=== PATIENT | female | born 1960 | race Caucasian/White ===

== ENCOUNTER 2017-08-04 11:21 | Emergency (ER) | payer BC ==
[~2017-08-04] VITALS: Ht 172.7 cm; Wt 95.2 kg
[~2017-08-04 11:21] MED LIST: Aspir-Trin325 MG; CHOL10002; GLUC500 PO; MULVITMIND; Red Yeast Rice600 MG
[2017-08-04] MEDS ORDERED: Zofran4 MG PO (14:31)
== END 2017-08-04 14:48 | disposition home or self-care (01) ==
LOC: ER 11:21
DX: R55 Syncope and collapse (principal); E78.00 Pure hypercholesterolemia, unspecified; Z79.899 Other long term (current) drug therapy; Z88.1 Allergy status to other antibiotic agents
CPT/HCPCS: 36415; 93005; 93010; 96374; 99283; J2310; J7120

== ENCOUNTER → 2018-03-11 | Outpatient (CLI) | payer BC ==
[~2018-03-11] MED LIST changes: +Zofran4 MG PO
== END ==
LOC: LAB 15:39 → LAB SHORT 15:39
PROVIDERS: Nurse Practitioner Family
DX: Z01.419 Encounter for gynecological examination (general) (routine) without abnormal findings (principal)
CPT/HCPCS: G0145

== ENCOUNTER 2018-11-10 14:48 | Emergency (ER) | payer BC ==
[~2018-11-10] VITALS: Ht 172.7 cm; Wt 94.3 kg
[2018-11-10] MEDS ORDERED: Crutch1 EACH MISC (17:09)
[2018-12-16] MEDS ORDERED: GLUCOSAMINE CH1 EAC4 PO (08:12)
[2018-12-16] MEDS ORDERED: VITAMIN D31000 UNI2 PO (08:12)
[2018-12-16] MEDS ORDERED: ASPI325 PO (08:13)
== END 2018-11-10 17:16 | disposition home or self-care (01) ==
LOC: ER 14:48
DX: S89.92XA Unspecified injury of left lower leg, initial encounter (principal); M19.90 Unspecified osteoarthritis, unspecified site; E78.5 Hyperlipidemia, unspecified; Z88.8 Allergy status to other drugs, medicaments and biological substances; X58.XXXA Exposure to other specified factors, initial encounter
CPT/HCPCS: 73562-LT; 99283-25

== ENCOUNTER 2018-12-24 08:25 | Day surgery (SDC) | payer BC ==
[~2018-12-24] VITALS: Ht 172.7 cm; Wt 90.0 kg
[~2018-12-24 08:25] MED LIST changes: +ASPI325 PO; +Crutch1 EACH MISC; +GLUCOSAMINE CH1 EAC4 PO; +VITAMIN D31000 UNI2 PO
--- NOTE | 2018-12-24 11:43 | NUR ---
12/24/18 Mauricio3 Carina Castillo SHE STATES SHE CANNOT GET UP.THAT SHE IS TOO PAINFUL. THAT SHE WILL PASS OUT. HAS HAD FENTANYL 50 MCG. SLEEPING UNLESS DISTURBED, VSS.
== END 2018-12-24 13:46 | disposition home or self-care (01) ==
LOC: ORSCSDS 08:25
PROVIDERS: Orthopaedic Surgery
PROC: 0SQD4ZZ Repair Left Knee Joint, Percutaneous Endoscopic Approach (ICD-10-PCS; principal; 2018-12-24 09:45)
DX: S83.242A Other tear of medial meniscus, current injury, left knee, initial encounter (principal); M25.861 Other specified joint disorders, right knee; M94.262 Chondromalacia, left knee; M65.9 Synovitis and tenosynovitis, unspecified; J45.909 Unspecified asthma, uncomplicated; G47.33 Obstructive sleep apnea (adult) (pediatric); R56.9 Unspecified convulsions; Z79.82 Long term (current) use of aspirin
CPT/HCPCS: A9270-GY; C1713; J0171; J0690; J1100; J1885; J2250; J2405; J2704; J2795; J3010; J7120

== ENCOUNTER 2020-08-11 07:28 | Day surgery (SDC) | payer BC ==
[~2020-08-11] VITALS: Ht 172.7 cm; Wt 92.7 kg
[~2020-08-11 07:28] MED LIST changes: +ALBU90OI INH; +ASPI325EC PO
--- NOTE | 2020-08-11 08:24 | NUR ---
08/11/20 0824 REA VELASCO PT BOWEL PREP SUTABS
== END 2020-08-11 10:21 | disposition home or self-care (01) ==
LOC: ORSCSDS 07:28
PROVIDERS: Internal Medicine Gastroenterology
PROC: 0DBL8ZX Excision of Transverse Colon, Via Natural or Artificial Opening Endoscopic, Diagnostic (ICD-10-PCS; principal; 2020-08-11 09:00)
DX: Z12.11 Encounter for screening for malignant neoplasm of colon (principal); Z86.010 Personal history of colon polyps; Z80.0 Family history of malignant neoplasm of digestive organs; D12.3 Benign neoplasm of transverse colon; K57.30 Diverticulosis of large intestine without perforation or abscess without bleeding; G47.33 Obstructive sleep apnea (adult) (pediatric); K64.8 Other hemorrhoids; E66.9 Obesity, unspecified; Z68.31 Body mass index [BMI] 31.0-31.9, adult; Z79.82 Long term (current) use of aspirin; Z79.899 Other long term (current) drug therapy
CPT/HCPCS: 88305; J2704

== ENCOUNTER → 2021-03-07 | Outpatient (CLI) | payer BC | END | disposition home or self-care (01) | LOC: LAB 12:51 → LAB SHORT 12:51 | DX: C44.629 Squamous cell carcinoma of skin of left upper limb, including shoulder (principal) | CPT/HCPCS: 88305 ==

== ENCOUNTER → 2021-08-17 | Outpatient (CLI) | payer BC ==
[2021-08-24 16:11] LABS: HPV 16 Negative (Negative); HPV 18 Negative (Negative); HPV OTHER HR TYPES Negative (Negative)
== END | disposition home or self-care (01) ==
LOC: LAB 13:26 → LAB SHORT 13:26
PROVIDERS: Family Medicine
DX: Z01.419 Encounter for gynecological examination (general) (routine) without abnormal findings (principal)
CPT/HCPCS: 87624; G0145

== ENCOUNTER → 2021-09-18 | Outpatient (CLI) | payer BC | END | disposition home or self-care (01) | LOC: LAB 07:58 → LAB SHORT 07:58 → PLD 07:58 | DX: D48.5 Neoplasm of uncertain behavior of skin (principal) | CPT/HCPCS: 88305 ==

== ENCOUNTER 2023-10-21 08:51 | Day surgery (SDC) | payer MEDICARE, OTHER ==
[~2023-10-21] VITALS: Ht 172.7 cm; Wt 94.3 kg
[2023-10-21] MEDS ORDERED: Lactated Ringer's 1,000 ML IV ONE ×2 (09:07→09:50)
[2023-10-21] MEDS ORDERED: LATA.005SO (09:08)
[2023-10-21] MEDS ORDERED: propofoL 60 ML IV ONE (09:54)
[2023-10-21] MEDS ORDERED: Midazolam HCL 1 MG/ML 5MLVIAL ONE (09:55)
--- NOTE | 2023-10-21 10:04 | NUR ---
10/21/23 1004 GLADYS ARNOLD PT TO ENDO SUITE, PT MEDICATED BY THIS RN WITH 2MG VERSED VIA IV PER MD SOLARES DIRECTION. PT PLACED ON MONITORS AND O2 VIA POM MASK
[2023-10-21 10:56] VITALS: BP 116/71
== END 2023-10-21 11:01 | disposition home or self-care (01) ==
LOC: ORSCSDS 08:51
PROVIDERS: Internal Medicine Gastroenterology
PROC: 0DBM8ZX Excision of Descending Colon, Via Natural or Artificial Opening Endoscopic, Diagnostic (ICD-10-PCS; principal; 2023-10-21 10:00)
PROC: 0DBL8ZX Excision of Transverse Colon, Via Natural or Artificial Opening Endoscopic, Diagnostic (ICD-10-PCS; principal; 2023-10-21 10:00)
PROC: 0DBP8ZX Excision of Rectum, Via Natural or Artificial Opening Endoscopic, Diagnostic (ICD-10-PCS; principal; 2023-10-21 10:00)
PROC: 0DBN8ZX Excision of Sigmoid Colon, Via Natural or Artificial Opening Endoscopic, Diagnostic (ICD-10-PCS; principal; 2023-10-21 10:00)
DX: Z12.11 Encounter for screening for malignant neoplasm of colon (principal); Z80.0 Family history of malignant neoplasm of digestive organs; Z83.719 Family history of colon polyps, unspecified; D12.3 Benign neoplasm of transverse colon; D12.4 Benign neoplasm of descending colon; K63.5 Polyp of colon; K62.1 Rectal polyp; K57.30 Diverticulosis of large intestine without perforation or abscess without bleeding; K64.4 Residual hemorrhoidal skin tags; Z86.010 Personal history of colon polyps; G47.33 Obstructive sleep apnea (adult) (pediatric); E66.9 Obesity, unspecified; Z68.31 Body mass index [BMI] 31.0-31.9, adult
CPT/HCPCS: 88305; J2250; J2704; J7120